=== PATIENT | female | born 1945 | race African-American/Black ===

== ENCOUNTER 2020-10-07 16:37 | Observation (INO) | payer MEDICARE ==
[~2020-10-07] VITALS: Ht 157.5 cm; Wt 79.2 kg
--- NOTE | 2020-10-07 18:15 | PHYS DOC ---
Past Medical History Past Medical History: Hypertension, Other Additional Past Medical Histor: IRREGULAR HEART BEAT Past Surgical History: Smoking Status: Current Some Day Smoker Alcohol Use: None General Adult EDM: Chief Complaint: CHEST PAIN-CARDIAC NATURE HPI: HPI: Patient is a 75 year old female who presented to ER due to left-sided chest pain that radiated to her left shoulder and arm and her scapula since this morning. Patient has history of hypertension and irregular heartbeat, denies any history of coronary artery disease, no diabetic history. Patient denies any cough or fever. Patient is fully vaccinated for COVID-19. Patient denies any abdominal pain, no nausea vomiting Review of Systems: Review of Systems: Constitutional: Denies fever or chills. [] Eyes: Denies change in visual acuity. [] HENT: Denies nasal congestion or sore throat. [] Respiratory: Denies cough or shortness of breath. [] Cardiovascular: Positive for chest pain. GI: Denies abdominal pain, nausea, vomiting, bloody stools or diarrhea. [] : Denies dysuria. [] Musculoskeletal: Denies back pain or joint pain. [] Integument: Denies rash. [] Neurologic: Denies headache, focal weakness or sensory changes. [] Endocrine: Denies polyuria or polydipsia. [] Lymphatic: Denies swollen glands. [] Psychiatric: Denies depression or anxiety. [] Heart Score: C/O Chest Pain: Yes HEART Score for Chest Pain: HEART Score for Chest Pain Response (Comments) Value History Moderately Suspicious 1 ECG Nonspecific Repolarizatio 1 Age > 65 2 Risk Factors 1 or 2 Risk Factors 1 Troponin < Normal Limit 0 Total 5 Risk Factors: Risk Factors: DM, Current or recent (<one month) smoker, HTN, HLP, family history of CAD, obesity. Risk Scores: Score 0 - 3: 2.5% MACE over next 6 weeks - Discharge Home Score 4 - 6: 20.3% MACE over next 6 weeks - Admit for Clinical Observation Score 7 - 10: 72.7% MACE over next 6 weeks - Early Invasive Strategies Physical Exam: PE: Constitutional: Well developed, well nourished, no acute distress, non-toxic appearance. [] HENT: Normocephalic, atraumatic, bilateral external ears normal, oropharynx moist, no oral exudates, nose normal. [] Eyes: PERRLA, EOMI, conjunctiva normal, no discharge. [] Neck: Normal range of motion, no tenderness, supple, no stridor. [] Cardiovascular:Heart rate regular rhythm, no murmur [] Lungs & Thorax: Bilateral breath sounds clear to auscultation [] Abdomen: Bowel sounds normal, soft, no tenderness, no masses, no pulsatile masses. [] Skin: Warm, dry, no erythema, no rash. [] Back: No tenderness, no CVA tenderness. [] Extremities: No tenderness, no cyanosis, no clubbing, ROM intact, no edema. [] Neurologic: Alert and oriented X 3, normal motor function, normal sensory function, no focal deficits noted. [] Psychologic: Affect normal, judgement normal, mood normal. [] Current Patient Data: Labs: Laboratory Tests Test 10/07/20 18:13 White Blood Count 17.2 x10^3/uL Red Blood Count 5.58 x10^6/uL Hemoglobin 11.7 g/dL Hematocrit 36.3 % Mean Corpuscular Volume 65 fL Mean Corpuscular Hemoglobin 21 pg Mean Corpuscular Hemoglobin Concent 32 g/dL Red Cell Distribution Width 15.6 % Platelet Count 389 x10^3/uL Neutrophils (%) (Auto) 71 % Lymphocytes (%) (Auto) 19 % Monocytes (%) (Auto) 8 % Eosinophils (%) (Auto) 1 % Basophils (%) (Auto) 1 % Neutrophils # (Auto) 12.3 x10^3/uL Lymphocytes # (Auto) 3.2 x10^3/uL Monocytes # (Auto) 1.4 x10^3/uL Eosinophils # (Auto) 0.2 x10^3/uL Basophils # (Auto) 0.2 x10^3/uL Platelet Estimate Pending Sodium Level 142 mmol/L Potassium Level 3.6 mmol/L Chloride Level 103 mmol/L Carbon Dioxide Level 29 mmol/L Anion Gap 10 Blood Urea Nitrogen 15 mg/dL Creatinine 1.0 mg/dL Estimated GFR (Cockcroft-Gault) 65.4 BUN/Creatinine Ratio 15 Glucose Level 106 mg/dL Calcium Level 9.9 mg/dL Magnesium Level 1.8 mg/dL Total Bilirubin 0.8 mg/dL Aspartate Amino Transf (AST/SGOT) 26 U/L Alanine Aminotransferase (ALT/SGPT) 33 U/L Alkaline Phosphatase 117 U/L Troponin I Quantitative < 0.017 ng/mL EU-Faf-P-Type Natriuretic Peptide 66 pg/mL Total Protein 7.9 g/dL Albumin 3.7 g/dL Albumin/Globulin Ratio 0.9 Lipase 102 U/L Vital Signs: Vital Signs Date Time Temp Pulse Resp B/P (MAP) Pulse Ox O2 Delivery O2 Flow Rate FiO2 10/07/20 16:55 98.4 54 14 141/68 (92) 94 Room Air 98.4 EKG: EKG: EKG was done at 1646, heart rate 69 bpm, no ST segment elevation, normal axis. Radiology/Procedures: Radiology/Procedures: [][place] [id number] IMAGING REPORT Signed PATIENT: ORI PIERCE ACCOUNT: [id number] : 1945 LOCATION: ER AGE: 75 SEX: F EXAM STATUS: REG ER ORD. PHYSICIAN: KVNG BREAUX DO REASON: chest pain PROCEDURE: PORTABLE CHEST 1V EXAM: Chest, single view. HISTORY: Chest pain. COMPARISON: None. FINDINGS: A frontal view of the chest is obtained. There is no infiltrate, pleural effusion or pneumothorax. There is a prominent cardiac silhouette. There is a suspected hiatal hernia. There is left infrahilar atelectasis. IMPRESSION: No acute pulmonary finding. Electronically signed by: Winnie Palomino MD (10/07/2020 6:31 PM) [id number] DICTATED and SIGNED BY: WINNIE PALOMINO MD DATE: 10/07/20 [id number] [place], [place] [id number] IMAGING REPORT Signed PATIENT: ORI PIERCE ACCOUNT: [id number] : 1945 LOCATION: ER AGE: 75 SEX: F EXAM STATUS: REG ER ORD. PHYSICIAN: KVNG BREAUX DO REASON: chest pain, soa PROCEDURE: CT ANGIOGRAPHY CHEST Exam: CT of chest with contrast INDICATION: Chest pain TECHNIQUE: Sequential axial images through the chest obtained following the administration of 100 mL of Isovue-370 IV contrast. Sagittal and coronal reformatted images were reconstructed from the axial data and reviewed. Exposure: One or more of the following in the visualized dose reduction techniques were utilized for this examination: 1. Automated exposure control 2. Adjustment of the MA and/or KV according to patient size 3. Use of iterative of reconstructive technique Comparisons: Chest x-ray same day FINDINGS: Visual is portions of the thyroid are unremarkable. No enlarged mediastinal lymph nodes. Heart size is normal. No pericardial effusion. Thoracic aorta has a normal course and caliber. Pulmonary artery is not enlarged. No pulmonary embolus identified within the main, lobar or segmental pulmonary arteries. Airways are patent. No consolidation or pneumothorax. Strandy opacities at dependent portion lungs likely representing atelectasis. No suspicious lung nodules. No pleural effusion or thickening. Visualized upper abdomen is unremarkable. Moderate size hiatal hernia. No suspicious osseous lesions or acute fractures. IMPRESSION: No pulmonary embolus identified within the main, lobar or segmental pulmonary arteries. Electronically signed by: Kiesha Nevarez MD (10/07/2020 8:10 PM) [facility] DICTATED and SIGNED BY: KIESHA NEVAREZ MD DATE: 10/07/[id number] 0 Course & Med Decision Making: Course & Med Decision Making Pertinent Labs and Imaging studies reviewed. (See chart for details) Patient is a 75-year-old female who presented to ER due to left-sided shoulder pain, left arm pain, left-sided chest pain. EKG and cardiac exam normal so far. Patient be admitted to hospital for further evaluation and treatment, discussed with the hospitalist on-call Dr. Lopez who agrees admit patient Dragon Disclaimer: Dragon Disclaimer: This electronic medical record was generated, in whole or in part, using a voice recognition dictation system. Departure Departure Impression: Primary Impression: Chest pain Disposition: ADMITTED INPATIENT Admitting Physician: NOEMI (DR. SCHAEFER) Condition: STABLE Referrals: DARRON DE LOS SANTOS MD (PCP) KVNG BREAUX DO Oct 07, 2020 18:15
--- NOTE | 2020-10-07 18:21 | EKG ---
[facility] [address] [place] [address] Test Date: 2020-10-07 Test Time: 16:46:45 Pat Name: ORI PIERCE Department: Room: Gender: F [place] Hand: : 1945 Requested By: KVNG BREAUX Order Number: [id number] Reading MD: Measurements Intervals [place] Rate: 69 P: 31 DC: 178 QRS: 4 QRSD: 64 T: 3 QT: 376 QTc: 404 Interpretive Statements SINUS RHYTHM NO SPECIFIC ECG ABNORMALITIES RI6.01 No previous ECG available for comparison
--- NOTE | 2020-10-07 18:22 | EKG ---
[facility] [address] [place] [address] Test Date: 2020-10-07 Test Time: 18:09:58 Pat Name: ORI PIERCE Department: Room: Gender: F Flow Worker: : 1945 Requested By: KVNG BREAUX Order Number: [id number] Reading MD: Farhan Duckworth MD Measurements Intervals [place] Rate: 60 P: 31 WI: 176 QRS: 5 QRSD: 64 T: -3 QT: 390 QTc: 390 Interpretive Statements SINUS RHYTHM Electronically Signed On 10-08-2020 18:23:22 CDT by Farhan Duckworth MD
[2020-10-07 18:24] LABS: BASO # 0.2 x10^3/uL (0.0-0.2); BASO % 1 % (0-3); EOS # 0.2 x10^3/uL (0.0-0.7); EOS % 1 % (0-3); HEMATOCRIT 36.3 % (36.0-47.0); HEMOGLOBIN 11.7 g/dL (12.0-15.5); LYMPH # 3.2 x10^3/uL (1.0-4.8); LYMPH % 19 % (24-48); MEAN CORPUSCULAR HEMOGLOBIN 21 pg (25-35); MEAN CORPUSCULAR HGB CONC 32 g/dL (31-37); MEAN CORPUSCULAR VOLUME 65 fL (79-100); MONO # 1.4 x10^3/uL (0.0-1.1); MONO % 8 % (0-9); NEUT # 12.3 x10^3/uL (1.8-7.7); NEUT % 71 % (31-73); PLATELET COUNT 389 x10^3/uL (140-400); RED BLOOD COUNT 5.58 x10^6/uL (3.50-5.40); RED CELL DISTRIBUTION WIDTH 15.6 % (11.5-14.5); WHITE BLOOD COUNT 17.2 x10^3/uL (4.0-11.0)
--- NOTE | 2020-10-07 18:33 | RAD ---
EXAM: Chest, single view. HISTORY: Chest pain. COMPARISON: None. FINDINGS: A frontal view of the chest is obtained. There is no infiltrate, pleural effusion or pneumo thorax. There is a prominent cardiac silhouette. There is a suspected hiatal hernia. There is left in frahilar atelectasis. IMPRESSION: No acute pulmonary finding. Electronically signed by: Winnie Quinn MD (10/07/2020 6:31 PM) [id number]
[2020-10-07 18:39] LABS: CALCIUM 9.9 mg/dL (8.5-10.1); GFR 65.4; POTASSIUM 3.6 mmol/L (3.5-5.1)
[2020-10-07 18:45] LABS: ALBUMIN 3.7 g/dL (3.4-5.0); ALBUMIN/GLOBULIN RATIO 0.9 (1.0-1.7); MAGNESIUM 1.8 mg/dL (1.8-2.4); TOTAL BILIRUBIN 0.8 mg/dL (0.2-1.0); TOTAL PROTEIN 7.9 g/dL (6.4-8.2)
[2020-10-07 18:59] LABS: ANISOCYTOSIS SLIGHT; HYPOCHROMIA MOD; MICROCYTOSIS MARKED; OVALOCYTES PRESENT; PLT ESTIMATE ADEQUATE (ADEQUATE); POIKILOCYTOSIS SLIGHT
[2020-10-07 19:00] LABS: POLYCHROMASIA PRESENT
[2020-10-07] MEDS ORDERED: IOHEXOL 350 MG/ML 100 ML VIAL. IV ONE (19:30)
[2020-10-07] MEDS ORDERED: CONTRAST GIVEN. MC PRN (19:30)
--- NOTE | 2020-10-07 20:13 | RAD ---
Exam: CT of chest with contrast INDICATION: Chest pain TECHNIQUE: Sequential axial images through the chest obtained following the administration of 100 mL of Isovue-370 IV contrast. Sagittal and coronal reformatted images were reconstructed from the axial data and reviewed. Exposure: One or more of the following in the visualized dose reduction techniques were utilized for this examination: 1. Automated exposure control 2. Adjustment of the MA and/or KV according to patient size 3. Use of iterative of reconstructive technique Comparisons: Chest x-ray same day FINDINGS: Visual is portions of the thyroid are unremarkable. No enlarged mediastinal lymph nodes. Heart size is normal. No pericardial effusion. Thoracic aorta has a normal course and caliber. Pulmon cathi artery is not enlarged. No pulmonary embolus identified within the main, lobar or segmental pulmo nary arteries. Airways are patent. No consolidation or pneumothorax. Strandy opacities at dependent portion lungs li yasmany representing atelectasis. No suspicious lung nodules. No pleural effusion or thickening. Visualized upper abdomen is unremarkable. Moderate size hiatal hernia. No suspicious osseous lesions or acute fractures. IMPRESSION: No pulmonary embolus identified within the main, lobar or segmental pulmonary arteries. Electronically signed by: Kiesha Ocasio MD (10/07/2020 8:10 PM) [facility]
[2020-10-07] MEDS ORDERED: ASPIRIN CHEWABLE 81 MG TABLET. PO ONE (21:00)
[2020-10-07] MEDS ORDERED: ONDANSETRON PF 4 MG/2 ML VIAL. IV PRN (21:00)
[2020-10-07 21:21] LABS: BILIRUBIN,URINE NEGATIVE (NEG); CLARITY,URINE CLEAR; COLOR,URINE YELLOW; NITRITE,URINE NEGATIVE (NEG); PROTEIN,URINE NEGATIVE (NEG-TRACE); UROBILINOGEN,URINE 0.2 mg/dL (0.2 mg/dL)
[2020-10-07 21:28] LABS: BACTERIA,URINE 0 /HPF (0-FEW); RBC,URINE 0 /HPF (0-2); WBC,URINE OCC /HPF (0-4)
[2020-10-07 23:03] VITALS: BP 146/84
--- NOTE | 2020-10-07 23:20 | NUR ---
The patient, ORI PIERCE, 75 y/o, F admitted by JEFFERY SCHAEFER III, DO, was given written information regarding hospital policies, unit procedures and contact persons. Pt alert and oriented x4, denies pain at this time. Assessment and history complete. Plan of care explained, pt verbalized understanding, call light in place will cont to monitor pt status and safety. Valuables were checked and documented. pmrn
[2020-10-07] MEDS ORDERED: METO25TA4 PO (23:30)
[2020-10-07] MEDS ORDERED: SPIR1TAB3 PO (23:30)
[2020-10-07] MEDS ORDERED: CALC-31 PO (23:30)
[2020-10-08 02:27] VITALS: BP 137/76
[2020-10-08 03:04] VITALS: BP 132/67
[2020-10-08 07:00] VITALS: BP 135/63
[2020-10-08] MEDS ORDERED: CALCIUM CARB/VIT D3 500/200 TABLET. PO SCH (08:00)
[2020-10-08 08:39] LABS: CHOLESTEROL/HDL RATIO 3.8
[2020-10-08] MEDS ORDERED: AMOXICILLIN/K CLAV 875/125MG TABLET. PO SCH (09:00)
[2020-10-08] MEDS ORDERED: hydroCHLOROthiazide 25 MG TABLET PO SCH (09:00)
[2020-10-08] MEDS ORDERED: METOPROLOL TART IMMED RELEASE 25 MG TABLET. PO SCH (09:00)
[2020-10-08] MEDS ORDERED: SPIRONOLACTONE 25 MG TABLET PO SCH (09:00)
--- NOTE | 2020-10-08 09:14 | HP ---
ADMIT DATE: 10/07/2020 CHIEF COMPLAINT: Chest pain. HISTORY OF PRESENT ILLNESS: The patient is a pleasant 75-year-old female who presents with chest pain. She states it started radiating to her left shoulder and then down to her arm. It was then started a squeezing sensation in her chest, rated at 7/10. It was worse with moving, better with sitting still. I discussed the case with ER physician. We are admitting the patient with consultation to Cardiology. PAST MEDICAL HISTORY: Hypertension, arrhythmia, , tobacco abuse. ALLERGIES: None. FAMILY HISTORY: Coronary artery disease. SOCIAL HISTORY: She is retired from [employer]. She does smoke. No drink or drugs. MEDICATIONS: Reviewed. Please refer to the MRAD. REVIEW OF SYSTEMS: GENERAL: No history of weight change, weakness or fevers. SKIN: No bruising, hair changes or rashes. HENT: She is complaining of some left tooth pain and she is scheduled to see a dentist. EYES: No blurred, double or loss of vision. NOSE AND THROAT: No history of nosebleeds, hoarseness or sore throat. HEART: No history of palpitations, chest pain or shortness of breath on exertion. LUNGS: Denies cough, hemoptysis, wheezing or shortness of breath. GASTROINTESTINAL: Denies changes in appetite, nausea, vomiting, diarrhea or constipation. GENITOURINARY: No history of frequency, urgency, hesitancy or nocturia. NEUROLOGIC: Denies history of numbness, tingling, tremor or weakness. PSYCHIATRIC: No history of panic, anxiety or depression. ENDOCRINE: No history of heat or cold intolerance, polyuria or polydipsia. EXTREMITIES: Denies muscle weakness, joint pain, pain on walking or stiffness. PHYSICAL EXAMINATION: VITAL SIGNS: Within normal limits and are stable. GENERAL: No apparent distress. Alert and oriented. HENT: Normal cephalic atraumatic, external auditory canals are patent. EYES: Extraocular muscles are intact, pupils are equally round and reactive to light and accommodation. MUSCULOSKELETAL: Well developed, well nourished, good range of motion. ENDOCRINE: no thyromegaly was palpated. LYMPHATICS: no cervical chain or axillary nodes were noted. HEMATOPOIETIC: No bruising. NECK: Supple, no JVD, no thyromegaly was noted. LUNGS: Clear to auscultation in all lung kern without rhonchi or wheezing. HEART: RRR, S1, S2 present. Peripheral pulses intact, no obvious murmurs were noted. ABDOMEN: Soft, nontender. Positive bowel sounds no organomegaly, normal bowel sounds. EXTREMITIES: Without any cyanosis, clubbing, or edema. Pedal pulses intact, Homans sign is negative. NEUROLOGIC: Normal speech, normal tone. A and O x 3, moves all extremities, no obvious focal deficits. PSYCHIATRIC: Normal affect, normal mood. Stable. SKIN: No ulcerations or rashes, good skin turgor, no jaundice. VASCULAR: Good capillary refill, neurovascular bundle appears to be intact. LABORATORY DATA: Labs shows a white count of 17 and her troponin is 0. ASSESSMENT AND PLAN: Chest pain, rule out coronary artery disease. The patient has been admitted. We will check serial enzymes, serial EKGs. Home meds. DVT prophylaxis. Full code. Consult Cardiology. She does have a mild leukocytosis. I suspect it could be related to her tooth infection. We will go ahead and start Augmentin 875 [address] [facility] [place] DR: SHEREEN/santy TID: [id number]
--- NOTE | 2020-10-08 10:19 | PDOC2 ---
MICHELINE JURAEZ ACTIVITIES DIRECTOR 10/08/20 1019: CARDIAC CONSULT DATE OF CONSULT Date of Consult DATE: 10/08/20 TIME: 10:10 REASON FOR CONSULT Reason for Consult: Chest pain REFERRING PHYSICIAN Referring Physician: Dre SOURCE Source: Chart review, Patient HISTORY OF PRESENT ILLNESS HISTORY OF PRESENT ILLNESS This is a pleasant 75 yo female admitted for complains of chest pain. Reports that she woke up from a nap yesterday and was sweaty. She did start having left shoulder achiness that went to her left arm. Denies any palpitations nausea or jaw tightness at that time. She did have left chest tightness that lasted about 10 second and did not come back. No SOA. Denies any falls or any recent injury. She has history of skipping beats but could not specify any arrhythmias and no mention of past AFIB. Denies passing out or frequent dizziness. No hx of CAD, VTE. She sees Dr. 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 PAST MEDICAL HISTORY Cardiovascular: HTN, Other (skipping beats) Pulmonary: No pertinent hx CENTRAL NERVOUS SYSTEM: Other (No pertinent history) GI: GERD Heme/Onc: No pertinent hx Hepatobiliary: No pertinent hx Psych: No pertinent hx Musculoskeletal: Osteoarthritis Rheumatologic: No pertinent hx Infectious disease: No pertinent hx ENT: No pertinent hx Renal/: No pertinent hx Endocrine: No pertinent hx Dermatology: No pertinent hx PAST SURGICAL HISTORY Past Surgical History: (x1) FAMILY HISTORY Family History Noncontributory to CV SOCIAL HISTORY Smoke: <1 pack per day ALCOHOL: occassional Lives: Alone CURRENT MEDICATIONS CURRENT MEDICATIONS Current Medications Medications (Trade) Dose Ordered Sig/Geovanni Route PRN Reason Start Time Stop Time Status Last Admin Dose Admin Iohexol (Omnipaque 350 Mg/ml) 100 ml 1X ONCE IV 10/07/20 19:30 10/07/20 19:31 DC 10/07/20 19:35 Metoprolol Tartrate (Lopressor) 25 mg BID PO 10/08/20 09:00 10/08/20 09:28 Calcium/Vitamin D (Oscal D 500mg/ 200uts) 1 tab BIDWMEALS PO 10/08/20 08:00 10/08/20 09:26 Hydrochlorothiazide (Hydrodiuril) 25 mg DAILY PO 10/08/20 09:00 10/08/20 09:26 Spironolactone (Aldactone) 25 mg DAILY PO 10/08/20 09:00 10/08/20 09:26 ALLERGIES ALLERGIES: Coded Allergies: No Known Drug Allergies (Unverified , 10/07/20) ROS Review of System 14 point ROS evlauated with pertinent positives noted per HPI PHYSICAL EXAM General: Alert, Oriented X3, Cooperative, No acute distress HEENT: Atraumatic, Mucous membr. moist/pink Lungs: Clear to auscultation, Normal air movement Heart: Regular rate (SR/SB), Normal S1, Normal S2, No murmurs Abdomen: Soft, No tenderness Extremities: No cyanosis, No edema Skin: No breakdown, No significant lesion Neuro: Normal speech, Sensation intact Psych/Mental Status: Mental status NL, Mood NL MUSCULOSKELETAL: Osteoarthritic changes both hands VITALS/I&O VITALS/I&O: Vital Signs Date Time Temp Pulse Resp B/P (MAP) Pulse Ox O2 Delivery O2 Flow Rate FiO2 10/08/20 09:28 76 135/63 10/08/20 07:00 98.4 16 94 Room Air 98.4 I & O 10/07/20 10/07/20 10/08/20 15:00 23:00 07:00 Intake Total 320 ml Balance 320 ml LABS Lab: Laboratory Tests Test 10/07/20 18:13 10/07/20 21:10 10/07/20 22:45 10/08/20 00:15 White Blood Count 17.2 x10^3/uL (4.0-11.0) H Red Blood Count 5.58 x10^6/uL (3.50-5.40) H Hemoglobin 11.7 g/dL (12.0-15.5) L Hematocrit 36.3 % (36.0-47.0) Mean Corpuscular Volume 65 fL (79-100) L Mean Corpuscular Hemoglobin 21 pg (25-35) L Mean Corpuscular Hemoglobin Concent 32 g/dL (31-37) Red Cell Distribution Width 15.6 % (11.5-14.5) H Platelet Count 389 x10^3/uL (140-400) Neutrophils (%) (Auto) 71 % (31-73) Lymphocytes (%) (Auto) 19 % (24-48) L Monocytes (%) (Auto) 8 % (0-9) Eosinophils (%) (Auto) 1 % (0-3) Basophils (%) (Auto) 1 % (0-3) Neutrophils # (Auto) 12.3 x10^3/uL (1.8-7.7) H Lymphocytes # (Auto) 3.2 x10^3/uL (1.0-4.8) Monocytes # (Auto) 1.4 x10^3/uL (0.0-1.1) H Eosinophils # (Auto) 0.2 x10^3/uL (0.0-0.7) Basophils # (Auto) 0.2 x10^3/uL (0.0-0.2) Platelet Estimate Adequate (ADEQUATE) Polychromasia Present Hypochromasia Mod Poikilocytosis Slight Basophilic Stippling Present Anisocytosis Slight Microcytosis Marked Ovalocytes Present Sodium Level 142 mmol/L (136-145) Potassium Level 3.6 mmol/L (3.5-5.1) Chloride Level 103 mmol/L (98-107) Carbon Dioxide Level 29 mmol/L (21-32) Anion Gap 10 (6-14) Blood Urea Nitrogen 15 mg/dL (7-20) Creatinine 1.0 mg/dL (0.6-1.0) Estimated GFR (Cockcroft-Gault) 65.4 BUN/Creatinine Ratio 15 (6-20) Glucose Level 106 mg/dL (70-99) H Calcium Level 9.9 mg/dL (8.5-10.1) Magnesium Level 1.8 mg/dL (1.8-2.4) Total Bilirubin 0.8 mg/dL (0.2-1.0) Aspartate Amino Transferase (AST) 26 U/L (15-37) Alanine Aminotransferase (ALT) 33 U/L (14-59) Alkaline Phosphatase 117 U/L (46-116) H Troponin I Quantitative < 0.017 ng/mL (0.000-0.055) < 0.017 ng/mL (0.000-0.055) < 0.017 ng/mL (0.000-0.055) YS-Kuk-S-Type Natriuretic Peptide 66 pg/mL (0-449) Total Protein 7.9 g/dL (6.4-8.2) Albumin 3.7 g/dL (3.4-5.0) Albumin/Globulin Ratio 0.9 (1.0-1.7) L Lipase 102 U/L (73-393) Urine Collection Type Void Urine Color Yellow Urine Clarity Clear Urine pH 6.0 (<5.0-8.0) Urine Specific Deport >=1.030 (1.000-1.030) Urine Protein Negative mg/dL (NEG-TRACE) Urine Glucose (UA) Negative mg/dL (NEG) Urine Ketones (Stick) Negative mg/dL (NEG) Urine Blood Negative (NEG) Urine Nitrite Negative (NEG) Urine Bilirubin Negative (NEG) Urine Urobilinogen Dipstick 0.2 mg/dL (0.2 mg/dL) Urine Leukocyte Esterase Negative (NEG) Urine RBC 0 /HPF (0-2) Urine WBC Occ /HPF (0-4) Urine Squamous Epithelial Cells Few /LPF Urine Bacteria 0 /HPF (0-FEW) Urine Mucus Slight /LPF Test 10/08/20 07:10 Triglycerides Level 96 mg/dL (0-150) Cholesterol Level 155 mg/dL (0-200) LDL Cholesterol, Calculated 95 mg/dL (0-100) VLDL Cholesterol, Calculated 19 mg/dL (0-40) Non-HDL Cholesterol Calculated 114 mg/dL (0-129) HDL Cholesterol 41 mg/dL (40-60) Cholesterol/HDL Ratio 3.8 Laboratory Tests 10/07/20 18:13 Laboratory Tests 10/07/20 18:13 ASSESSMENT/PLAN ASSESSMENT/PLAN 1. Atypical Chest pain: possibly MSK 2. HTN: controlled 3. Hx of arrhythmia: unspecified. "skipping beats" hence on metoprolol 4. Obesity 5. Asymptomatic SB lowest mid40s otherwise no pauses Recommendations 1. Continue ASA and metoprolol 2. TTE and TSH. 3. She sees Dr. Lopez at [facility] cardiology. She will notify him for outpt stress test. Anticipate DC this afternoon CECILIA ARMENDARIZ MD 10/08/20 2923: CARDIAC CONSULT ASSESSMENT/PLAN ASSESSMENT/PLAN Pt. seen and examined. Agree with above VARNISHING UNIT OPERATOR note. MICHELINE JUAREZ APRN Oct 08, 2020 10:19 CECILIA ARMENDARIZ MD Oct 08, 2020 18:23
[2020-10-08 11:00] VITALS: BP 140/62
--- NOTE | 2020-10-08 14:45 | NUR ---
SS following for discharge planning. SS reviewed pt chart and discussed with pt RN. Pt is from home and is currently on room air. Cardiology consulted. SS will continue to follow for discharge planning.
[2020-10-08 15:00] VITALS: BP 152/65
--- NOTE | 2020-10-08 18:40 | NUR ---
Discharge Note: ORI PIERCE Discharge instructions and discharge home medications reviewed with Patient and a copy given. All questions have been answered and understanding verbalized. The following instructions and handouts were given: discharge instructions, follow up instructions and education regarding s/sx of cardiac chest pain Discontinued lines and drains: Peripheral IV intact. Patient discharged to Home or Self Care with[facility]
--- NOTE | 2020-10-08 20:05 | CARD ---
MR#: [id number] Date of Study: 10/08/2020 Ordering Physician: MICHELINE JUAREZ, Referring Physician: MICHELINE JUAREZ Tech: Krystin Ellis [facility] APPROVED REPORT EXAM: Two-dimensional and M-mode echocardiogram with Doppler and color Doppler. Other Information Quality : AverageHR: 59bpm Rhythm : NSR INDICATION Chest Pain RISK FACTORS Hypertension Obesity 2D DIMENSIONS RVDd2.9 (2.9-3.5cm)Left Atrium(2D)3.1 (1.6-4.0cm) IVSd0.9 (0.7-1.1cm)Aortic Root(2D)2.7 (2.0-3.7cm) LVDd4.1 (3.9-5.9cm)PWd0.9 (0.7-1.1cm) LVDs2.6 (2.5-4.0cm)FS (%) 36.8 % SV50.1 mlLVEF(%)67.1 (>50%) Aortic Valve AoV Peak Aman.143.5cm/sAoV VTI25.6cm AO Peak GR.8.2mmHgLVOT Peak Aman.91.2cm/s AO Mean GR.3mmHg Mitral Valve MV E Ousajqis13.1cm/sMV DECEL SHZB753zi MV A Sobviqdm13.5cm/sE/A Ratio1.0 Pulmonary Valve PV Peak Efwlxvbi280.7cm/s Tricuspid Valve TR P. Ihahzdzy679uh/sTR Peak Gr.24mmHg LEFT VENTRICLE The left ventricle is normal size. There is normal left ventricular wall thickness. The left ventricu lar systolic function is normal. Estimated ejection fraction 60%. There is normal LV segmental wall motion. Transmitral Doppler flow pattern is Grade II-pseudonormal filling dynamics. RIGHT VENTRICLE The right ventricle is normal size. There is normal right ventricular wall thickness. The right ventr icular systolic function is normal. ATRIA The left atrium size is normal. The right atrium size is normal. The interatrial septum is intact wit h no evidence for an atrial septal defect or patent foramen ovale as noted on 2-D or Doppler imaging. AORTIC VALVE The aortic valve is normal in structure and function. Doppler and Color Flow revealed no significant aortic regurgitation. There is no significant aortic valvular stenosis. MITRAL VALVE The mitral valve is normal in structure and function. There is no evidence of mitral valve prolapse. There is no mitral valve stenosis. Doppler and Color-flow revealed mild mitral regurgitation. TRICUSPID VALVE The tricuspid valve is normal in structure and function. Doppler and Color Flow revealed mild tricusp id regurgitation. Estimated PAP 30 mmHg. There is no tricuspid valve stenosis. PULMONIC VALVE The pulmonary valve is normal in structure and function. Doppler and Color Flow revealed trace to mil d pulmonic valvular regurgitation. GREAT VESSELS The aortic root is normal in size. The ascending aorta is normal in size. The IVC is normal in size a nd collapses >50% with inspiration. PERICARDIAL EFFUSION There is no evidence of significant pericardial effusion. Critical Notification Critical Value: No <Conclusion> The left ventricular systolic function is normal. Estimated ejection fraction 60%. There is normal LV segmental wall motion. Transmitral Doppler flow pattern is Grade II-pseudonormal filling dynamics. Mild mitral regurgitation. Mild tricuspid regurgitation. Estimated PAP 30 mmHg. There is no evidence of significant pericardial effusion. Signed by : Helio Elizondo, Electronically Approved : 10/08/2020 20:04:31
--- NOTE | 2020-10-09 11:58 | DS ---
DATE OF DISCHARGE: 10/08/2020 ADMITTING DIAGNOSIS: Chest pain. DISCHARGE DIAGNOSIS: Resolving atypical chest pain. HOSPITAL COURSE: The patient is a pleasant, middle-aged female who presented with chest pain. She was admitted. We did serial enzymes, serial EKGs. We consulted Cardiology. Her troponins remained negative. Her BNP level remained normal. Cardiology was okay with her going home. We discharged to home. DISPOSITION: Home. ACTIVITY: As tolerated. DIET: Low sodium. DISCHARGE MEDICATIONS: I gave her a prescription for Augmentin 875 p.o. b.i.d. because she has infected tooth and she is going to follow up with her dentist. TOTAL TIME: [address]: Yen TID: [id number]
== END 2020-10-08 18:49 | disposition home or self-care (01) ==
LOC: ER 16:37 → 2 NORTH 20:44
PROVIDERS: ADMIT Internal Medicine; ATTEND Internal Medicine
DX: R07.89 Other chest pain (principal); D72.829 Elevated white blood cell count, unspecified; I10 Essential (primary) hypertension; I49.9 Cardiac arrhythmia, unspecified; E66.9 Obesity, unspecified; K04.7 Periapical abscess without sinus; K21.9 Gastro-esophageal reflux disease without esophagitis; M19.90 Unspecified osteoarthritis, unspecified site; F17.210 Nicotine dependence, cigarettes, uncomplicated; Z98.891 History of uterine scar from previous surgery; Z68.31 Body mass index [BMI] 31.0-31.9, adult
CPT/HCPCS: 36415; 71045; 71275; 80053; 80061; 81001; 83690; 83735; 83880; 84443; 84484; 85025; 93005; 93306; 99285; G0378; Q9967; G0379